=== PATIENT | male | born 1955 | race Caucasian/White ===

== ENCOUNTER 2019-12-12 21:54 | Emergency (ER) | payer OTHER | END 2019-12-12 22:36 | disposition other institution (70) | LOC: ED 21:54 | DX: Z02.89 Encounter for other administrative examinations (principal) ==

== ENCOUNTER 2019-12-12 21:54 | Emergency (ER) | payer OTHER ==
[~2019-12-12] VITALS: Ht 172.7 cm; Wt 81.6 kg
[2019-12-12 21:55] VITALS: Ht 172.7 cm; Wt 81.6 kg
[2019-12-12 22:36] VITALS: BP 138/74
== END 2019-12-12 22:36 | disposition other institution (70) ==
LOC: ED 21:54
DX: S00.83XA Contusion of other part of head, initial encounter (principal); S00.31XA Abrasion of nose, initial encounter; R10.32 Left lower quadrant pain; E78.00 Pure hypercholesterolemia, unspecified; X58.XXXA Exposure to other specified factors, initial encounter; Y93.89 Activity, other specified; Y92.89 Other specified places as the place of occurrence of the external cause; Y99.8 Other external cause status